=== PATIENT | female | born 1950 | race Caucasian/White ===

== ENCOUNTER 2017-12-01 18:17 | Inpatient (IN) ==
[2017-12-01] MEDS ORDERED: Diphtheria/Tetanus/Pertussis Vaccine Inj 0.5 ML Syringe IM ONE (18:30)
[2017-12-01 18:42] LABS: Baso # (Auto) 0.1 th/mm3 (0.0-0.2); Baso % (Auto) 0.5 % (0.0-2.0); Eos # (Auto) 0.3 th/mm3 (0.0-0.4); Eos % (Auto) 2.5 % (0.0-4.0); Hematocrit 35.1 % (35.0-46.0); Hemoglobin 11.7 gm/dL (11.6-15.3); Lymph # (Auto) 2.3 th/mm3 (1.0-4.8); Mean Corpuscular HGB Conc 33.5 % (32.0-36.0); Mean Corpuscular Hemoglobin 26.9 pg (27.0-34.0); Mean Corpuscular Volume 80.4 fL (80.0-100.0); Mean Platelet Volume 7.2 fL (7.0-11.0); Mono # (Auto) 0.7 th/mm3 (0.0-0.9); Mono % (Auto) 6.5 % (0.0-8.0); Neut # (Auto) 7.3 th/mm3 (1.8-7.7); Neut % (Auto) 68.5 % (16.0-70.0); Platelet Count 245 th/mm3 (150-450); Red Blood Count 4.36 mil/mm3 (4.00-5.30); Red Cell Distribution Width 14.7 % (11.6-17.2); White Blood Count 10.6 th/mm3 (4.0-11.0)
--- NOTE | 2017-12-01 18:44 | ED ---
HPI General Stated Complaint: Trauma Alert Source: patient Mode of arrival: EMS Limitations: no limitations History of Present Illness HPI narrative: [age]-old female who presents to the emergency department via EMS as a level 2 trauma alert. The patient was walking into her house, through a door, when she bumped her leg on a step and subsequently fell backwards. The patient was noted to have a large laceration to the anterior aspect of the left tibia/fibula, thought to be an open fracture in the field. The patient had the wound dressed in the field, was neurovascularly intact, and brought to [facility] in a cervical collar. The patient states after she fell, she landed on her buttocks, denies any direct head injury. She denies any headache, acute neck pain, back pain, chest pain, shortness of breath , nausea, vomiting, or abdominal pain. The patient did receive morphine 6 mg intravenously in the field by EMS prior to arrival. Surgical history: History of back surgery, right elbow surgery Medical history: Hypertension, asthma, left foot drop with neuropathy, sciatica Social history: Denies tobacco use. No alcohol or illicit drug use. Family history: Noncontributory Related Data Allergies Allergy/AdvReac Type Severity Reaction Status Date / Time No Known Allergies Allergy Unverified 12/01/17 21:39 Review of Systems ROS: all other systems reviewed are negative [facility] Social History Social History Substance History: No History of Abuse Second Hand Smoke Exposure: No Smoking Status: Never smoker How Often Do You Have a Drink Containing Alcohol: Never Exam Narrative Exam Narrative: GENERAL: Awake, alert, very pleasant [age]old female who appears her stated age and is in no acute respiratory distress. The patient is in a cervical collar and lying supine. SKIN: Focused skin assessment warm/dry. HEAD: Atraumatic. Normocephalic. EYES: Pupils equal and round. 4 mm bilateral and reactive. EOMs are intact. ENT: No nasal bleeding or discharge. Mucous membranes pink and moist. NECK: Trachea midline. No JVD. Cervical collar in place. CARDIOVASCULAR: Regular rate and rhythm. No murmur appreciated. RESPIRATORY: No accessory muscle use. Clear to auscultation. Breath sounds equal bilaterally. GASTROINTESTINAL: Abdomen soft, non-tender, nondistended. No rebound tenderness MUSCULOSKELETAL: Deformity to the mid to distal third of the left tibia/fibula with a laceration measuring 15 cm with visible subcutaneous tissue involvement and bone involvement. Positive left dorsalis pedal pulse. The patient cannot wiggle the toes left foot, but can plantarflex and dorsiflex. Positive dorsalis pedal pulses bilateral. Full use of the upper extremities. NEUROLOGICAL: Awake and alert. No obvious cranial nerve deficits. Motor grossly within normal limits. Normal speech. Nonfocal. Oriented 4. Sensation is intact to soft touch of the medial, lateral, dorsal aspect of the left foot. PSYCHIATRIC: Appropriate mood and affect; insight and judgment normal. Course Initial Documented Vital Signs Pulse Oximetry 100 12/01/17 18:37 Last Documented Vital Signs Temperature 97.6 F 12/02/17 08:25 Pulse Rate 106 H 12/02/17 08:25 Respiratory Rate 18 12/02/17 08:25 Blood Pressure 155/77 H 12/02/17 08:25 Pulse Oximetry 94 L 12/02/17 08:25 Medical Decision Making MDM Narrative Medical decision making narrative: ATLS protocol was followed. Upon arrival the patient's airway, breathing, circulation were intact. 2 large-bore IVs were established, labs are drawn and sent, and the patient was placed on cardiac telemetry monitoring and continuous pulse oximetry monitoring. Chest x- ray, pelvis x-ray, and x-ray of the left tibia/fibula were obtained. The patient had Betadine dressing applied over the laceration to the left leg and the patient was placed in a long-leg splint. X-ray of the left tibia/fibula reveals a fracture, with large laceration, consistent with open fracture. The patient received Ancef 2 g intravenously and 80 mg of gentamicin intravenously. The patient also had her tetanus shot updated and received morphine 4 mg intravenously and Zofran 4 mg intravenously. The patient was kept n.p.o. The patient was seen by the orthopedic surgeon, Dr. Davenport, at bedside. I discussed the patient with Dr. Thomas, the on-call trauma surgeon, who agrees with admission. Medical Screen Exam Complete: Yes Emergency Medical Condition: Yes Differential Diagnosis Differential Diagnosis: Differential diagnosis includes open fracture, closed fracture, tissue avulsion, laceration, contusion, hematoma, syncope. Lab Data Lab results reviewed: Yes I reviewed the patient's lab results. Result diagrams: 12/02/17 04:12/02/17 04:09 Lab Results 12/01/17 12/01/17 12/01/17 Range/Units 18:19 18:19 18:19 WBC 10.6 (4.0-11.0) th/mm3 RBC 4.36 (4.00-5.30) mil/mm3 Hgb 11.7 (11.6-15.3) gm/dL POC Hgb (Calc) 11.6 (11.6-15.3) g/dL Hct 35.1 (35.0-46.0) % POC Hct 34.0 L (35-46.0) % MCV 80.4 (80.0-100.0) fL MCH 26.9 L (27.0-34.0) pg MCHC 33.5 (32.0-36.0) % RDW 14.7 (11.6-17.2) % Plt Count 245 (150-450) th/mm3 MPV 7.2 (7.0-11.0) fL Neut % (Auto) 68.5 (16.0-70.0) % Lymph % (Auto) 22.0 (9.0-44.0) % [place] % (Auto) 6.5 (0.0-8.0) % Eos % (Auto) 2.5 (0.0-4.0) % Baso % (Auto) 0.5 (0.0-2.0) % Neut # (Auto) 7.3 (1.8-7.7) th/mm3 Lymph # (Auto) 2.3 (1.0-4.8) th/mm3 [place] # (Auto) 0.7 (0.0-0.9) th/mm3 Eos # (Auto) 0.3 (0.0-0.4) th/mm3 Baso # (Auto) 0.1 (0.0-0.2) th/mm3 WBC Differential . Differential Comment Auto diff final PT 10.9 (9.8-11.6) sec INR 1.1 Ratio APTT 26.5 (24.3-30.1) sec POC Sodium 142 (137-144) mmol/L Sodium (136-145) meq/L POC Potassium 3.3 L (3.6-5.0) mmol/L Potassium (3.5-5.1) meq/L POC Chloride 99 L (102-111) mmol/L Chloride (98-107) meq/L Carbon Dioxide (21.0-32.0) meq/L Anion Gap (5-15) meq/L POC BUN 13 (5-21) mg/dL BUN (7-18) mg/dL Creatinine (0.50-1.00) mg/dL POC Creatinine 0.8 (0.6-1.3) mg/dL Estimated GFR (>89) mL/min POC Glucose 129 H (68-110) mg/dL Random Glucose (74-106) mg/dL Calcium (8.5-10.1) mg/dL Total Bilirubin (0.2-1.0) mg/dL AST (15-37) U/L ALT (10-53) U/L Alkaline Phosphatase (45-117) U/L Total Protein (6.4-8.2) g/dL Albumin (3.4-5.0) g/dL Blood Type Antibody Screen 12/01/17 12/01/17 12/02/17 Range/Units 18:19 21:58 04:09 WBC 17.2 H D (4.0-11.0) th/mm3 RBC 3.72 L (4.00-5.30) mil/mm3 Hgb 10.6 L 9.8 L (11.6-15.3) gm/dL POC Hgb (Calc) (11.6-15.3) g/dL Hct 31.2 L 30.0 L (35.0-46.0) % POC Hct (35-46.0) % MCV 80.7 (80.0-100.0) fL MCH 26.3 L (27.0-34.0) pg MCHC 32.6 (32.0-36.0) % RDW 14.4 (11.6-17.2) % Plt Count 272 (150-450) th/mm3 MPV 7.2 (7.0-11.0) fL Neut % (Auto) 91.5 H (16.0-70.0) % Lymph % (Auto) 6.3 L (9.0-44.0) % [place] % (Auto) 1.9 (0.0-8.0) % Eos % (Auto) 0.0 (0.0-4.0) % Baso % (Auto) 0.3 (0.0-2.0) % Neut # (Auto) 15.8 H (1.8-7.7) th/mm3 Lymph # (Auto) 1.1 (1.0-4.8) th/mm3 [place] # (Auto) 0.3 (0.0-0.9) th/mm3 Eos # (Auto) 0.0 (0.0-0.4) th/mm3 Baso # (Auto) 0.0 (0.0-0.2) th/mm3 WBC Differential . Differential Comment Auto diff final PT (9.8-11.6) sec INR Ratio APTT (24.3-30.1) sec POC Sodium (137-144) mmol/L Sodium (136-145) meq/L POC Potassium (3.6-5.0) mmol/L Potassium (3.5-5.1) meq/L POC Chloride (102-111) mmol/L Chloride (98-107) meq/L Carbon Dioxide (21.0-32.0) meq/L Anion Gap (5-15) meq/L POC BUN (5-21) mg/dL BUN (7-18) mg/dL Creatinine (0.50-1.00) mg/dL POC Creatinine (0.6-1.3) mg/dL Estimated GFR (>89) mL/min POC Glucose (68-110) mg/dL Random Glucose (74-106) mg/dL Calcium (8.5-10.1) mg/dL Total Bilirubin (0.2-1.0) mg/dL AST (15-37) U/L ALT (10-53) U/L Alkaline Phosphatase (45-117) U/L Total Protein (6.4-8.2) g/dL Albumin (3.4-5.0) g/dL Blood Type O Positive Antibody Screen Negative 12/02/17 Range/Units 04:09 WBC (4.0-11.0) th/mm3 RBC (4.00-5.30) mil/mm3 Hgb (11.6-15.3) gm/dL POC Hgb (Calc) (11.6-15.3) g/dL Hct (35.0-46.0) % POC Hct (35-46.0) % MCV (80.0-100.0) fL MCH (27.0-34.0) pg MCHC (32.0-36.0) % RDW (11.6-17.2) % Plt Count (150-450) th/mm3 MPV (7.0-11.0) fL Neut % (Auto) (16.0-70.0) % Lymph % (Auto) (9.0-44.0) % [place] % (Auto) (0.0-8.0) % Eos % (Auto) (0.0-4.0) % Baso % (Auto) (0.0-2.0) % Neut # (Auto) (1.8-7.7) th/mm3 Lymph # (Auto) (1.0-4.8) th/mm3 [place] # (Auto) (0.0-0.9) th/mm3 Eos # (Auto) (0.0-0.4) th/mm3 Baso # (Auto) (0.0-0.2) th/mm3 WBC Differential Differential Comment PT (9.8-11.6) sec INR Ratio APTT (24.3-30.1) sec POC Sodium (137-144) mmol/L Sodium 136 (136-145) meq/L POC Potassium (3.6-5.0) mmol/L Potassium 3.9 (3.5-5.1) meq/L POC Chloride (102-111) mmol/L Chloride 100 (98-107) meq/L Carbon Dioxide 27.1 (21.0-32.0) meq/L Anion Gap 9 (5-15) meq/L POC BUN (5-21) mg/dL BUN 13 (7-18) mg/dL Creatinine 0.95 (0.50-1.00) mg/dL POC Creatinine (0.6-1.3) mg/dL Estimated GFR 51 L (>89) mL/min POC Glucose (68-110) mg/dL Random Glucose 191 H (74-106) mg/dL Calcium 8.2 L (8.5-10.1) mg/dL Total Bilirubin 0.3 (0.2-1.0) mg/dL AST 15 (15-37) U/L ALT 21 (10-53) U/L Alkaline Phosphatase 69 (45-117) U/L Total Protein 6.8 (6.4-8.2) g/dL Albumin 3.5 (3.4-5.0) g/dL Blood Type Antibody Screen Imaging Data Attestation: I personally reviewed and interpreted this imaging study as follows : My impression: X-ray of the left tibia/fibula reveals fracture Radiologist's impression: Tibia/Fibula X-Ray 12/01/17 00:00 CONCLUSION: Status post open rigid internal fixation. Chest X-Ray 12/01/17 18:19 CONCLUSION: No acute cardiopulmonary disease. Pelvis X-Ray 12/01/17 18:19 CONCLUSION: Negative trauma study. Tibia/Fibula X-Ray 12/01/17 18:26 CONCLUSION: Comminuted fractures of the tibia and fibula. Discharge Plan Discharge Disposition Patient Disposition: 30 Still Patient Discharge Condition Condition: Stable Discharge Details Diagnosis: Open fracture of tibia and fibula Physicians Team ED Provider: John Phillips Attending Provider: Omi Joyce Other Providers: Errol Brasher ; Kvng Woodall ; Systems[facility] ; Omi Joyce ; Madeleine Casas ; J Luis Fatima ; Irma Bonilla ; Faviola Bragg ; Ellie Bonilla Status ED Status: Admitted Patient
[2017-12-01] MEDS ORDERED: ceFAZolin 2 GM Premix Inj 0 GM/0 ML PIGGYBACK IV.SIG ONE (18:46)
[2017-12-01] MEDS ORDERED: Bupivacaine/Epinephrine Inj 0.25% 50 ML Vial ONE (18:47)
[2017-12-01 18:53] LABS: Activated Partial Thrombo Time 26.5 sec (24.3-30.1); INR 1.1 Ratio; Prothrombin Time 10.9 sec (9.8-11.6)
--- NOTE | 2017-12-01 19:03 | XR ---
EXAM DATE: 12/01/2017 7:00 PM EDT AGE/SEX: 89 years / Female INDICATIONS: Trauma Alert CLINICAL DATA: This is the patient's initial encounter. Patient reports that signs and symptoms have been present for 1 day and indicates a pain score of 7/10. MEDICAL/SURGICAL HISTORY: None. None. COMPARISON: No prior exams available for comparison. FINDINGS: A single AP supine view of the chest was obtained and demonstrates no confluent infiltrates or effusi ons. The heart size is at the upper limits of normal. The bony thorax is intact in appearance. Multip le overlying electrocardiogram leads. CONCLUSION: No acute cardiopulmonary disease. Electronically signed by: Aba Aguilar MD 12/01/2017 7:02 PM EDT
--- NOTE | 2017-12-01 19:03 | XR ---
EXAM DATE: 12/01/2017 6:59 PM EDT AGE/SEX: 89 years / Female INDICATIONS: Trauma Alert CLINICAL DATA: This is the patient's initial encounter. Patient reports that signs and symptoms have been present for 1 day and indicates a pain score of 8/10. MEDICAL/SURGICAL HISTORY: None. None. COMPARISON: No prior exams available for comparison. FINDINGS: 2 AP views of the pelvis were obtained. Both views are mildly underpenetrated. There is no acute frac ture or malalignment. The hips are intact in appearance with mild degenerative change. The pubic rami are intact as well. No soft tissue abnormality is identified. CONCLUSION: Negative trauma study. Electronically signed by: Aba Aguilar MD 12/01/2017 7:02 PM EDT
--- NOTE | 2017-12-01 19:05 | XR ---
EXAM DATE: 12/01/2017 6:57 PM EDT AGE/SEX: 89 years / Female INDICATIONS: Trauma Alert CLINICAL DATA: This is the patient's initial encounter. Patient reports that signs and symptoms have been present for 1 day and indicates a pain score of 9/10. MEDICAL/SURGICAL HISTORY: None. None. COMPARISON: No prior exams available for comparison. FINDINGS: AP and lateral views of the mid and lower tibia and fibula were obtained. This demonstrates a comminu claudio oblique fracture involving the mid tibia beginning approximately 18 cm above the level of the ank le mortise. The inferior fracture fragment is displaced laterally approximately 7 mm with mild distra ction and no significant angulation. There is a comminuted fracture of the distal fibula as well. The re is soft tissue swelling. The proximal tibia and fibula are not evaluated. CONCLUSION: Comminuted fractures of the tibia and fibula. Electronically signed by: Aba Aguilar MD 12/01/2017 7:04 PM EDT
--- NOTE | 2017-12-01 19:31 | P.CONOP ---
HPI Orthopedics Consult Note - HPI Chief complaint: open left tibia/fibula fracture, trauma alert Narrative: 17-69-[age]-old female who has a past medical history of hypertension, asthma, sciatica and left drop foot who presents to the emergency department via EMS as a level 2 trauma alert. The patient was walking into her house from a pull area where she was watching her grandchildren, through a door, and she states that because of the pre-existing dropfoot on the left side she feels that the foot got caught which caused her to fall backwards. She noticed immediate laceration of the leg. She was unable to stand on the leg. Any attempted ambulation or standing increased pain significantly. She denies having problems with this portion of her leg in the past. She says she has a dropfoot on the left side because of previous spine surgery and long-term sciatica on the left foot. She does not describe specific numbness or tingling about the left lower extremity that is new but she does have some pre-existing numbness. She does not describe pain in the upper extremities of the right lower extremity. Family history: Her grandparents have a history of diabetes and coronary artery disease Surgical history: Lumbar spine laminectomy and elbow surgery. Social history: The patient denies smoking or other illicit drugs Review of Systems A 12 point review of systems was reviewed and is negative unless as specified in the history of present illness. Medications and Allergies Active Medications: She says she can only remember hydrochlorothiazide. She does not member the names of other medicine she takes but she said she is not on a blood thinner. Allergies Allergy/AdvReac Type Severity Reaction Status Date / Time No Allergy Information Allergy Unverified 12/01/17 18:18 Available Exam Vital signs: Vital Signs 12/01/17 18:37 Pulse Oximetry 100 Narrative: GENERAL: The patient is awake, alert and oriented x3. The patient is in distress due to the trauma nature of the injury. She was interviewed in the trauma bay. PSYCHIATRIC: Normal affect, insight, and judgment. HEENT: Head is atraumatic. Oropharynx is moist. Extraocular muscles are intact. NECK: Immobilized LUNGS: No audible wheezing. He has normal inspiratory effort with no signs of dyspnea HEART: Regular rate and rhythm. ABDOMEN: Soft, nontender, and nondistended. BACK: No CVA tenderness. EXTREMITIES/SKIN/NEURO/VASCULAR: The left lower extremity shows a large laceration in the sole aspect of the tibia which extends medially. There is obvious muscle coming through this and the wound is quite . I do not appreciate significant gross contamination. The patient did come in wearing shorts. She does have a dropfoot (weakness) to the left foot but she has sensation on the dorsal and plantar aspect of the foot. She has a 2+ dorsalis pedis pulse and does have sensation to the foot to light touch. There is instability about the mid tibia indicating fractures. The bilateral upper extremities and right lower extremity have good range of motion actively of the major joints with no significant tenderness to palpation of bony prominences. Results - Labs Result Diagrams: 12/01/17 18:19 Labs: Laboratory Results - last 24 hr 12/01/17 12/01/17 12/01/17 18:19 18:19 18:19 WBC 10.6 RBC 4.36 Hgb 11.7 POC Hgb (Calc) 11.6 Hct 35.1 POC Hct 34.0 L MCV 80.4 MCH 26.9 L MCHC 33.5 RDW 14.7 Plt Count 245 MPV 7.2 Neut % (Auto) 68.5 Lymph % (Auto) 22.0 [place] % (Auto) 6.5 Eos % (Auto) 2.5 Baso % (Auto) 0.5 Neut # (Auto) 7.3 Lymph # (Auto) 2.3 [place] # (Auto) 0.7 Eos # (Auto) 0.3 Baso # (Auto) 0.1 WBC Differential . Differential Comment Auto diff final PT 10.9 INR 1.1 APTT 26.5 POC Sodium 142 POC Potassium 3.3 L POC Chloride 99 L POC BUN 13 POC Creatinine 0.8 POC Glucose 129 H Blood Type Antibody Screen 12/01/17 18:19 WBC RBC Hgb POC Hgb (Calc) Hct POC Hct MCV MCH MCHC RDW Plt Count MPV Neut % (Auto) Lymph % (Auto) [place] % (Auto) Eos % (Auto) Baso % (Auto) Neut # (Auto) Lymph # (Auto) [place] # (Auto) Eos # (Auto) Baso # (Auto) WBC Differential Differential Comment PT INR APTT POC Sodium POC Potassium POC Chloride POC BUN POC Creatinine POC Glucose Blood Type O Positive Antibody Screen Negative - Diagnostic results Imaging: Impressions Chest X-Ray 12/01/17 18:19 CONCLUSION: No acute cardiopulmonary disease. Pelvis X-Ray 12/01/17 18:19 CONCLUSION: Negative trauma study. Tibia/Fibula X-Ray 12/01/17 18:26 CONCLUSION: Comminuted fractures of the tibia and fibula. I have reviewed the images for this radiology study. I agree with the interpretation given by the radiologist. Assessment and Plan - Assessment and Plan Level 2 trauma alert with left open grade 3 tibia fibula fracture. The emergency room attending has already given the patient Ancef and gentamicin in the trauma bay. The patient will receive vancomycin preoperatively before surgery. I recommend emergent surgical management for this condition. Without emergent surgical management there is serious and likely significant limb threatening complications that can occur such as infection superficial and/or deep, including dysfunction of the lower extremity. The patient requires emergent irrigation and debridement of the leg along with external fixation versus intramedullary shameka fixation. She understands that surgery could be staged depending on intraoperative findings. She understands the serious nature of this injury. The patient would like to move forward with emergent surgical management for this condition. This is surgery should be considered non-elective, given that this patient presented emergently to the hospital, and the decision to proceed with surgery was derived from this presentation. Significantly delaying surgery (other than for medical clearance) has the potential to adversly effect the outcome for this patient's extremity. Management of pain associated with surgery will likely require the use of parental controlled substances. The risks and benefits of surgical management have been discussed in detail. The risks of surgery include, but are not limited to, injury to nerves, blood vessels, bleeding, infection, non-healing; loss of range on motion, dysfunction or weakness of the associated joints; blood clots, pneumonia, stroke, heart attack, and . - Attending Attestation Attending Attestation: A mid level provider in my office, nurse practitioner or PA, may see this patient on a follow up basis and continue to implement the plan including: starting or adjusting medications, injections of muscle, tendons, bursa or joints, cast application, orthotic or brace application, physical therapy, further radiographic studies including X-ray, MRI, CT, ultrasound or bone scan , vascular studies, neurological studies, or other specialist consultations, and proceeding with surgical management as appropriate.
[2017-12-01] MEDS ORDERED: Succinylcholine Inj 100 MG/5 ML Syringe IV.PUSH ONE (20:04)
[2017-12-01] MEDS ORDERED: Lidocaine PF 1% Inj 5 ML Syringe INFILTRATN ONE (20:04)
[2017-12-01] MEDS ORDERED: Metoprolol Inj 5 MG/5 ML Vial IV.PUSH ONE (20:04)
[2017-12-01] MEDS ORDERED: Glycopyrrolate Inj 1 MG/5 ML Syringe IV.PUSH ONE (20:04)
[2017-12-01] MEDS ORDERED: Phenylephrine/NS 1000 MCG/10ML Syringe IV.PUSH ONE (20:04)
[2017-12-01] MEDS ORDERED: Morphine Inj 4 MG/ML Vial IV.PUSH PRN (21:00)
[2017-12-01] MEDS ORDERED: Docusate Sodium 100 MG Capsule PO SCH (21:00)
[2017-12-01] MEDS ORDERED: Aluminum/Magnesium/Simethacone Susp 30 ML UDC PO PRN (21:06)
[2017-12-01] MEDS ORDERED: Post-op Orders (for Pharmacy) OTHER STA (21:06)
[2017-12-01] MEDS ORDERED: Zolpidem Tartrate 5 MG Tablet PO PRN (21:06)
[2017-12-01] MEDS ORDERED: Bisacodyl 10 MG Supp RECTAL PRN (21:06)
[2017-12-01] MEDS ORDERED: Enoxaparin Inj 40 MG/0.4 ML Syringe SQ SCH (21:15)
--- NOTE | 2017-12-01 21:15 | P.OP ---
- Preoperative Diagnosis (1) Open fracture of tibia and fibula Comment: Left grade 3 open comminuted tibia/fibula fracture Preoperative Diagnosis: Same Date of procedure: 12/01/17 Procedure: Left leg irrigation and debridement of skin through bone for open fracture. Left leg treatment of tibia fracture with intramedullary nail Implants: Synthes tibial nail, 11 x 315. Anesthesia: GETA Surgeon: Ron Davenport MD Correspondence School Teacher: ISELA Pearson The surgical procedure was assisted by my Advanced Registered Nurse Practitioner. My RAMP SUPERVISOR presence was necessary throughout this case for the manipulation and positioning of the surgical extremity. My RAMP SUPERVISOR was assisting me throughout the duration of this procedure. The skill set of an Advance Registered Nurse Practitioner was medically necessary to complete this procedure. During the surgical case, the medical surgical tech was working at the back table and the Advance Registered Nurse Practitioner was directly assisting me. Estimated blood loss (mL): 200 Tourniquet time (min): 0 Operation and Findings: See the consult for the justification for the procedure. The patient was brought back to the operative theater. She received intravenous vancomycin. The left lower extremity was prepped and draped in usual fashion for an open fracture. This was done after general endotracheal intubation was performed. The patient had a 14 cm wound across the anterior to medial aspect of the distal third tibial shaft. I did not see gross contamination. The laceration communicated with the fracture site and entered through the deep fascia although the muscles of the posterior compartment appeared to be intact without significant devitalization. I did not see any contamination within the exposed bone shafts. There was quite a bit of hematoma which was evacuated. The skin edges looked clean but were debrided along with the deep fascia and the edges of the bone. This was done with a curette. We then irrigated with 3 L of saline. Instruments, gloves, and drapes were exchanged. We started on the tibial nail at this point. We made incision proximal to the patella. We carefully dissected down to the quadriceps tendon. An in-line longitudinal split to the quadriceps tendon was completed. The capsule of the knee was entered. We placed the smooth trocar within the knee joint down to the proximal tibia, protecting the patella and trochlea during the case. We then reduced the tibia fracture manually and under fluoroscopic imaging. A ball-tipped guidewire was placed into the tibial shaft, passing the fracture site. This was placed down to the distal physeal line of the tibia. We then sequentially reamed the tibia to 1 mm larger than the implanted tibial nail. We obtained good cortical chatter. We measured the appropriate length for the tibial nail. We then passed the tibial nail into the medullary canal of the tibia. The nail was secured proximally with 2 screw, using the associated jig as a guide. We used the perfect cowlitz technique distally to visualize the distal tibial screw holes. We placed 3 screws distally. We thoroughly irrigated the incisions including a lavage of the arthrotomy site proximally. The quadriceps split was closed with a #1 Vicryl. The remaining incisions were closed with #2-0 Vicryl, followed by zeke. The traumatic laceration was closed with 2-0 Vicryl and 3-0 nylon. A well-padded splint was required to provide further stabilization to the leg. The postoperative plan is for nonweightbearing. Chemical DVT prophylaxis will be performed with Lovenox followed by aspirin.
--- NOTE | 2017-12-01 21:28 | XR ---
EXAM DATE: 12/01/2017 9:23 PM EDT AGE/SEX: 89 years / Female INDICATIONS: Status post open rigid internal fixation of a left tibial fracture. CLINICAL DATA: This is the patient's initial encounter. Patient reports that signs and symptoms have been present for 1 day and indicates a pain score of Nonresponsive. MEDICAL/SURGICAL HISTORY: None. None. COMPARISON: No prior exams available for comparison. FINDINGS: Multiple coned-down views of the left leg were obtained and demonstrate placement of an intramedullar y shameka transfixing the tibial fracture. The fracture fragments are now in near-anatomic alignment. The distal fibular fracture is again noted. The fragments are near-anatomic alignment as well. CONCLUSION: Status post open rigid internal fixation. Electronically signed by: Aba Aguilar MD 12/01/2017 9:27 PM EDT
--- NOTE | 2017-12-01 21:46 | MH ---
cc: Omi Joyce MD DATE OF ADMISSION: 12/01/2017 HISTORY OF PRESENT ILLNESS: This is a patient who was brought in as a level 2 trauma after tripping and falling. She was brought in secondary to age and long bone deformity. She was worked up by the emergency room physician and found to have an open fracture of her left tib-fib. Trauma service was requested for admission. On my evaluation, the patient was lying on a stretcher in no acute distress. She complained of left leg pain. She denies any head pain. Denies loss of consciousness. No neck pain. No chest pain. No shortness of breath. No abdominal pain. The patient states she landed on her buttocks after falling. PAST MEDICAL HISTORY: Significant for hypertension, sciatica, drop foot on the left. MEDICATIONS: She is on medication. She cannot recall the names of them. ALLERGIES: SHE HAS NO DRUG ALLERGIES. SOCIAL HISTORY: She does not smoke. FAMILY HISTORY: Noncontributory. PHYSICAL EXAMINATION: HEENT: Pupils are equal and reactive. NECK: Soft, nontender. No JVD. Trachea midline. LUNGS: Respirations are clear. CARDIOVASCULAR: Regular. GASTROINTESTINAL: Soft, obese, nontender. MUSCULOSKELETAL: Left leg in splint. NEUROLOGIC: Grossly intact. BACK: Nontender. RADIOLOGIC IMAGES: Pelvic x-ray: No fracture. Left tib-fib: Comminuted fracture of the tibia and fibula. Chest x-ray: No acute disease. ASSESSMENT: This is a patient status post a fall with an open fracture of the left tibia and fibula. The patient has been evaluated by orthopedics and will be going to the operating room for this. Will provide pain management postoperatively, monitor her neurologic and hemodynamics. Omi Joyce MD JLBuddy/john , 09:15 PM , 09:23 PM
[2017-12-01] MEDS ORDERED: fentaNYL Citrate Inj 100 MCG/2 ML Ampul ONE (22:00)
[2017-12-01] MEDS: Pantoprazole Inj 40 MG Vial IV.PUSH SCH (22:03)
[2017-12-01 22:12] LABS: Hematocrit 31.2 % (35.0-46.0); Hemoglobin 10.6 gm/dL (11.6-15.3)
[2017-12-01] MEDS ORDERED: *morphine SULFATE 4 MG/ML PERIprocedure ONLY ONE ×2 (22:14→22:34)
[2017-12-02 04:28] LABS: Baso % (Auto) 0.3 % (0.0-2.0); Hemoglobin 9.8 gm/dL (11.6-15.3); Lymph # (Auto) 1.1 th/mm3 (1.0-4.8); Lymph % (Auto) 6.3 % (9.0-44.0); Mean Corpuscular HGB Conc 32.6 % (32.0-36.0); Mean Corpuscular Hemoglobin 26.3 pg (27.0-34.0); Mean Corpuscular Volume 80.7 fL (80.0-100.0); Mean Platelet Volume 7.2 fL (7.0-11.0); Mono # (Auto) 0.3 th/mm3 (0.0-0.9); Mono % (Auto) 1.9 % (0.0-8.0); Neut # (Auto) 15.8 th/mm3 (1.8-7.7); Neut % (Auto) 91.5 % (16.0-70.0); Platelet Count 272 th/mm3 (150-450); Red Blood Count 3.72 mil/mm3 (4.00-5.30); Red Cell Distribution Width 14.4 % (11.6-17.2); White Blood Count 17.2 th/mm3 (4.0-11.0)
[2017-12-02 04:55] LABS: Albumin 3.5 g/dL (3.4-5.0); Anion Gap 9 meq/L (5-15); Aspartate Aminotransferase 15 U/L (15-37); Blood Urea Nitrogen 13 mg/dL (7-18); Calcium 8.2 mg/dL (8.5-10.1); Carbon Dioxide 27.1 meq/L (21.0-32.0); Chloride 100 meq/L (98-107); Glomerular Filtration Rate 51 mL/min (>89); Glucose,Random 191 mg/dL (74-106); Potassium 3.9 meq/L (3.5-5.1); Sodium 136 meq/L (136-145)
[2017-12-02 04:56] LABS: Alanine Aminotransferase 21 U/L (10-53)
[2017-12-02 04:58] LABS: Alkaline Phosphatase 69 U/L (45-117); Total Protein 6.8 g/dL (6.4-8.2)
[2017-12-02] MEDS: Morphine Inj 4 MG/ML Vial IV.PUSH PRN ×3 (05:06→16:10)
--- NOTE | 2017-12-02 09:06 | P.PN ---
Subjective Interval history: Trauma PTD: 1 Patient sitting up in bed. No distress noted. Having breakfast. at bedside. Patient states she is feeling much better after the administration of pain medication. Patient is very grateful for the care she has received. Physical Exam Vital signs: Vital Signs 12/01/17 18:37 12/01/17 21:54 12/01/17 22:00 Temperature 98.4 F Pulse Rate 100 H 95 H Respiratory Rate 16 11 L Blood Pressure 136/63 139/68 Pulse Oximetry 100 97 95 12/01/17 22:15 12/01/17 22:30 12/01/17 22:45 Temperature Pulse Rate 102 H 107 H Respiratory Rate 20 20 Blood Pressure 142/68 H 125/63 Pulse Oximetry 98 97 97 12/01/17 22:46 12/01/17 23:00 12/01/17 23:05 Temperature 97.8 F Pulse Rate 97 H 104 H Respiratory Rate 15 Blood Pressure 121/58 L 120/60 Pulse Oximetry 96 96 96 12/02/17 00:00 12/02/17 04:00 12/02/17 08:25 Temperature 97.9 F 97.8 F 97.6 F Pulse Rate 108 H 104 H 106 H Respiratory Rate 20 18 18 Blood Pressure 115/62 132/60 155/77 H Pulse Oximetry 96 98 94 L Intake & Output 12/01/17 12/02/17 12/02/17 18:59 06:59 18:59 Intake Total 2620 / 2620 Output Total 1850 / 1850 Balance 770 / 770 Weight 119.8 kg Intake: IV 200 / 200 Ancef Inj 1,000 MG In NS Inj 200 / 200 100 ML @ 200 mls/hr IV.SIG Q6H [facility] Rx#:[id number] Oral 1020 / 1020 Anesthesia Amount 1400 / 1400 Output: Urine 1250 / 1250 Estimated Blood Loss 200 / 200 Urine Amount (Catheter) 400 / 400 Indwelling Urethral Catheter 400 / 400 Other: Weight On Admission 114 kg Narrative: GENERAL: This is a 1-sno-utsn-old female sitting up in bed. No distress noted. SKIN: Warm and dry. HEAD: Atraumatic. Normocephalic. EYES: PERRLA ENT: No nasal bleeding or discharge. Mucous membranes pink and moist. NECK: Trachea midline. No JVD. CARDIOVASCULAR: Regular rate and rhythm. RESPIRATORY: No accessory muscle use. Lungs are clear to auscultation. Breath sounds equal bilaterally. No distress or dyspnea. GASTROINTESTINAL: BS + x 4 quads. Abdomen soft, non-tender, nondistended. MUSCULOSKELETAL: Extremities without cyanosis, or edema. Left lower extremity with splint in place and wrapped in Len bandage -elevated on pillow. Ice packs in place. + peripheral pulses x 4 extremities. Warm with good capillary refill and sensation. MAEW. NEUROLOGICAL: Awake and alert. Normal speech and pattern. - Urinary Catheter Management Indwelling Urethral Catheter Cath placed during this visit: yes Reason for continuing: Other continuation reason Insertion date: 12/01/17 Results - Labs CBC & Chem 7: 12/02/17 04:09 12/02/17 04:09 Laboratory Results - last 24 hr 12/01/17 12/01/17 12/01/17 18:19 18:19 18:19 WBC 10.6 RBC 4.36 Hgb 11.7 POC Hgb (Calc) 11.6 Hct 35.1 POC Hct 34.0 L MCV 80.4 MCH 26.9 L MCHC 33.5 RDW 14.7 Plt Count 245 MPV 7.2 Neut % (Auto) 68.5 Lymph % (Auto) 22.0 [place] % (Auto) 6.5 Eos % (Auto) 2.5 Baso % (Auto) 0.5 Neut # (Auto) 7.3 Lymph # (Auto) 2.3 [place] # (Auto) 0.7 Eos # (Auto) 0.3 Baso # (Auto) 0.1 WBC Differential . Differential Comment Auto diff final PT 10.9 INR 1.1 APTT 26.5 POC Sodium 142 Sodium POC Potassium 3.3 L Potassium POC Chloride 99 L Chloride Carbon Dioxide Anion Gap POC BUN 13 BUN Creatinine POC Creatinine 0.8 Estimated GFR POC Glucose 129 H Random Glucose Calcium Total Bilirubin AST ALT Alkaline Phosphatase Total Protein Albumin Blood Type Antibody Screen 12/01/17 12/01/17 12/02/17 18:19 21:58 04:09 WBC 17.2 H D RBC 3.72 L Hgb 10.6 L 9.8 L POC Hgb (Calc) Hct 31.2 L 30.0 L POC Hct MCV 80.7 MCH 26.3 L MCHC 32.6 RDW 14.4 Plt Count 272 MPV 7.2 Neut % (Auto) 91.5 H Lymph % (Auto) 6.3 L [place] % (Auto) 1.9 Eos % (Auto) 0.0 Baso % (Auto) 0.3 Neut # (Auto) 15.8 H Lymph # (Auto) 1.1 [place] # (Auto) 0.3 Eos # (Auto) 0.0 Baso # (Auto) 0.0 WBC Differential . Differential Comment Auto diff final PT INR APTT POC Sodium Sodium POC Potassium Potassium POC Chloride Chloride Carbon Dioxide Anion Gap POC BUN BUN Creatinine POC Creatinine Estimated GFR POC Glucose Random Glucose Calcium Total Bilirubin AST ALT Alkaline Phosphatase Total Protein Albumin Blood Type O Positive Antibody Screen Negative 12/02/17 04:09 WBC RBC Hgb POC Hgb (Calc) Hct POC Hct MCV MCH MCHC RDW Plt Count MPV Neut % (Auto) Lymph % (Auto) [place] % (Auto) Eos % (Auto) Baso % (Auto) Neut # (Auto) Lymph # (Auto) [place] # (Auto) Eos # (Auto) Baso # (Auto) WBC Differential Differential Comment PT INR APTT POC Sodium Sodium 136 POC Potassium Potassium 3.9 POC Chloride Chloride 100 Carbon Dioxide 27.1 Anion Gap 9 POC BUN BUN 13 Creatinine 0.95 POC Creatinine Estimated GFR 51 L POC Glucose Random Glucose 191 H Calcium 8.2 L Total Bilirubin 0.3 AST 15 ALT 21 Alkaline Phosphatase 69 Total Protein 6.8 Albumin 3.5 Blood Type Antibody Screen - Imaging Impressions Tibia/Fibula X-Ray 12/01/17 00:00 CONCLUSION: Status post open rigid internal fixation. Chest X-Ray 12/01/17 18:19 CONCLUSION: No acute cardiopulmonary disease. Pelvis X-Ray 12/01/17 18:19 CONCLUSION: Negative trauma study. Tibia/Fibula X-Ray 12/01/17 18:26 CONCLUSION: Comminuted fractures of the tibia and fibula. Assessment and Plan - Assessment (1) Open fracture of tibia and fibula Code(s): S82.209B - Unspecified fracture of shaft of unspecified tibia, initial encounter for open fracture type I or II; S82.409B - Unspecified fracture of shaft of unspecified fibula, initial encounter for open fracture type I or II Status: Acute - Plan [place]: This is a 42-snk-iv[age]-old female who sustained a fall. She was walking into her house and bumped her leg on a step, possibly due to to her foot drop. She fell backwards and landed on her buttocks. INJURIES: LEFT tib/fib laceration OPEN LEFT tib/fx PMHX: HTN. Asthma. Sciaatica. LEFT foot drop and neuropathy. Back surgery. Right elbow surgery. Procedures: 12/01: I&D LEFT leg w/ IM Nail. Consults: Orthopedics. Case management. Diet: Regular diet. Tolerating po diet. Encourage good po intake with each meal. Pulmonary: Encourage good pulmonary toileting. IS at bedside and pt encouraged to use. Rationale for use explained to patient, and verbalized understanding. PAIN Management: [place] 5-10 mg q 4h. Morphine 2 mg q 3h. Activity: OOB. . PT and OT ordered. (NWB LLE) GI prophylaxis: Protonix 40 mg IV. Bowel regimen: Rhonda-colace. MOM PRN. Lactulose PRN. Senna PRN. Bisacodyl PRN. LBM: 0 DVT prophylaxis: Mechanical VTE with SCDs. Chemical management with Lovenox 40 mg QD SQ. DC Planning: Case management consulted for assistance with final discharge disposition. Awaiting PT recommendations. Emotional support provided to patient and family at bedside and plan of care discussed. Discussed with RN at bedside. Discussed pt condition and plan of care with collaborating trauma surgeon. Patient is hemodynamically stable and being managed on the med/surg floor. The trauma team will round each day, and evaluate plan of care on a daily basis. LEFT tib/fib laceration OPEN LEFT tib/fx Orthopedics consulted and assisting in management care 12/01: I&D left leg with IM nail Supportive care Pain management PT and OT ordered Encourage out of bed NWB LLE Antibiotics per orthopedics - x 3 days Ice and elevation for comfort and support Bowel regimen Lovenox for DVT prophylaxis - Attending Attestation The exam, history, and the medical decision-making described in the above note were completed with the assistance of the mid-level provider. I reviewed and agree with the findings presented. I attest that I had a [id number] encounter with the patient on the same day, and personally performed and documented my assessment and findings in the medical record.
[2017-12-02] MEDS: Senna/Docusate Sodium 8.6/50 MG Tablet PO SCH ×2 (09:17→22:05)
[2017-12-02] MEDS: Multivitamin/Minerals Therapeutic Tablet PO SCH ×2 (09:17→22:05)
--- NOTE | 2017-12-02 11:22 | P.PNOP ---
Subjective Interval history: Patient resting in bed with mild to moderate LLE pain. Pain is well controlled with pain medication. Physical Exam Vital signs: Vital Signs 12/01/17 18:37 12/01/17 21:54 12/01/17 22:00 Temperature 98.4 F Pulse Rate 100 H 95 H Respiratory Rate 16 11 L Blood Pressure 136/63 139/68 Pulse Oximetry 100 97 95 12/01/17 22:15 12/01/17 22:30 12/01/17 22:45 Temperature Pulse Rate 102 H 107 H Respiratory Rate 20 20 Blood Pressure 142/68 H 125/63 Pulse Oximetry 98 97 97 12/01/17 22:46 12/01/17 23:00 12/01/17 23:05 Temperature 97.8 F Pulse Rate 97 H 104 H Respiratory Rate 15 Blood Pressure 121/58 L 120/60 Pulse Oximetry 96 96 96 12/02/17 00:00 12/02/17 04:00 12/02/17 08:00 Temperature 97.9 F 97.8 F Pulse Rate 108 H 104 H Respiratory Rate 20 18 Blood Pressure 115/62 132/60 Pulse Oximetry 96 98 95 12/02/17 08:25 Temperature 97.6 F Pulse Rate 106 H Respiratory Rate 18 Blood Pressure 155/77 H Pulse Oximetry 94 L Intake & Output 12/01/17 12/02/17 12/02/17 18:59 06:59 18:59 Intake Total 2620 / 2620 Output Total 1850 / 1850 Balance 770 / 770 Weight 119.8 kg Intake: IV 200 / 200 Ancef Inj 1,000 MG In NS Inj 200 / 200 100 ML @ 200 mls/hr IV.SIG Q6H [facility] Rx#:[id number] Oral 1020 / 1020 Anesthesia Amount 1400 / 1400 Output: Urine 1250 / 1250 Estimated Blood Loss 200 / 200 Urine Amount (Catheter) 400 / 400 Indwelling Urethral Catheter 400 / 400 Other: Weight On Admission 114 kg Narrative: Splint and dressing intact. Mild drainage on dressing. Good sensation to light touch x 5. BCR X 5. Minimal movement of toes but this is her baseline due to prior nerve damage in LLE. - Urinary Catheter Management Indwelling Urethral Catheter Cath placed during this visit: yes Reason for continuing: Other continuation reason Insertion date: 12/01/17 Results - Labs CBC & Chem 7: 12/02/17 04:09 12/02/17 04:09 Laboratory Results - last 24 hr 12/01/17 12/01/17 12/01/17 18:19 18:19 18:19 WBC 10.6 RBC 4.36 Hgb 11.7 POC Hgb (Calc) 11.6 Hct 35.1 POC Hct 34.0 L MCV 80.4 MCH 26.9 L MCHC 33.5 RDW 14.7 Plt Count 245 MPV 7.2 Neut % (Auto) 68.5 Lymph % (Auto) 22.0 [place] % (Auto) 6.5 Eos % (Auto) 2.5 Baso % (Auto) 0.5 Neut # (Auto) 7.3 Lymph # (Auto) 2.3 [place] # (Auto) 0.7 Eos # (Auto) 0.3 Baso # (Auto) 0.1 WBC Differential . Differential Comment Auto diff final PT 10.9 INR 1.1 APTT 26.5 POC Sodium 142 Sodium POC Potassium 3.3 L Potassium POC Chloride 99 L Chloride Carbon Dioxide Anion Gap POC BUN 13 BUN Creatinine POC Creatinine 0.8 Estimated GFR POC Glucose 129 H Random Glucose Calcium Total Bilirubin AST ALT Alkaline Phosphatase Total Protein Albumin Blood Type Antibody Screen 12/01/17 12/01/17 12/02/17 18:19 21:58 04:09 WBC 17.2 H D RBC 3.72 L Hgb 10.6 L 9.8 L POC Hgb (Calc) Hct 31.2 L 30.0 L POC Hct MCV 80.7 MCH 26.3 L MCHC 32.6 RDW 14.4 Plt Count 272 MPV 7.2 Neut % (Auto) 91.5 H Lymph % (Auto) 6.3 L [place] % (Auto) 1.9 Eos % (Auto) 0.0 Baso % (Auto) 0.3 Neut # (Auto) 15.8 H Lymph # (Auto) 1.1 [place] # (Auto) 0.3 Eos # (Auto) 0.0 Baso # (Auto) 0.0 WBC Differential . Differential Comment Auto diff final PT INR APTT POC Sodium Sodium POC Potassium Potassium POC Chloride Chloride Carbon Dioxide Anion Gap POC BUN BUN Creatinine POC Creatinine Estimated GFR POC Glucose Random Glucose Calcium Total Bilirubin AST ALT Alkaline Phosphatase Total Protein Albumin Blood Type O Positive Antibody Screen Negative 12/02/17 04:09 WBC RBC Hgb POC Hgb (Calc) Hct POC Hct MCV MCH MCHC RDW Plt Count MPV Neut % (Auto) Lymph % (Auto) [place] % (Auto) Eos % (Auto) Baso % (Auto) Neut # (Auto) Lymph # (Auto) [place] # (Auto) Eos # (Auto) Baso # (Auto) WBC Differential Differential Comment PT INR APTT POC Sodium Sodium 136 POC Potassium Potassium 3.9 POC Chloride Chloride 100 Carbon Dioxide 27.1 Anion Gap 9 POC BUN BUN 13 Creatinine 0.95 POC Creatinine Estimated GFR 51 L POC Glucose Random Glucose 191 H Calcium 8.2 L Total Bilirubin 0.3 AST 15 ALT 21 Alkaline Phosphatase 69 Total Protein 6.8 Albumin 3.5 Blood Type Antibody Screen - Imaging Impressions Tibia/Fibula X-Ray 12/01/17 00:00 CONCLUSION: Status post open rigid internal fixation. Chest X-Ray 12/01/17 18:19 CONCLUSION: No acute cardiopulmonary disease. Pelvis X-Ray 12/01/17 18:19 CONCLUSION: Negative trauma study. Tibia/Fibula X-Ray 12/01/17 18:26 CONCLUSION: Comminuted fractures of the tibia and fibula. Assessment and Plan - Assessment and Plan POD #1: Left leg irrigation and debridement of skin through bone for open fracture. Left leg treatment of tibia fracture with intramedullary nail 1. NWB LLE 2. Lovenox followed by ASA for DVT prophylaxis 3. Ice to the left LE PRN 4. Stable per ortho for discharge when medically cleared. 5. F/U in the office in 1-[address] Davenport or James WEISS. 6. Maintain splint
[2017-12-02] MEDS ORDERED: LORazepam 1 MG Tablet PO PRN (17:05)
[2017-12-02] MEDS: oxyCODONE/Acetaminophen 10/325 Tablet PO PRN ×2 (17:50→22:16)
[2017-12-02] MEDS: Gabapentin 300 MG Capsule PO SCH (17:50)
[2017-12-02] MEDS ORDERED: Montelukast 10 MG Tablet PO SCH (18:00)
[2017-12-02] MEDS ORDERED: Enoxaparin Inj 40 MG/0.4 ML Syringe SQ SCH (20:00)
[2017-12-02] MEDS ORDERED: MOMETASONE FORMOTEROL INH SCH (21:00)
[2017-12-02] MEDS: Metoprolol Tartrate 25 MG Tablet PO SCH (22:04)
[2017-12-02] MEDS: Duloxetine 60 MG DR Capsule PO SCH (22:05)
[2017-12-02] MEDS: Pantoprazole Inj 40 MG Vial IV.PUSH SCH (22:07)
[2017-12-03] MEDS: oxyCODONE/Acetaminophen 10/325 Tablet PO PRN ×4 (03:11→15:38)
[2017-12-03] MEDS ORDERED: Levothyroxine 75 MCG Tablet PO SCH (06:00)
[2017-12-03] MEDS: Senna/Docusate Sodium 8.6/50 MG Tablet PO SCH (07:59)
[2017-12-03] MEDS: Metoprolol Tartrate 25 MG Tablet PO SCH (07:59)
[2017-12-03] MEDS: Duloxetine 60 MG DR Capsule PO SCH (07:59)
[2017-12-03] MEDS: Multivitamin/Minerals Therapeutic Tablet PO SCH (07:59)
[2017-12-03] MEDS: Gabapentin 300 MG Capsule PO SCH ×2 (07:59→13:17)
--- NOTE | 2017-12-03 10:16 | P.PN ---
Subjective Interval history: TRAUMA PTD: 2 Patient sitting up in bed. No distress noted. Waiting for her breakfast tray to be delivered. Patient states, "I am okay." Patient states she worked with physical therapy yesterday, and was out of bed in the chair for over 3 hours. Patient states she is only having difficulty with transferring, and ambulation, due to to the weight of the splint on her left lower extremity. "This thing is heavy -it feels like concrete." Patient is hopeful for rehab placement. Physical Exam Vital signs: Vital Signs 12/02/17 12:03 12/02/17 13:42 12/02/17 16:30 Temperature 97.7 F 97.8 F Pulse Rate 98 H 94 H Respiratory Rate 18 18 Blood Pressure 150/72 H 146/67 H Pulse Oximetry 96 95 95 12/02/17 18:33 12/02/17 20:00 12/03/17 00:00 Temperature 98.6 F 98.1 F Pulse Rate 102 H 94 H Respiratory Rate 18 18 18 Blood Pressure 146/65 H 174/82 H Pulse Oximetry 93 L 95 12/03/17 04:00 12/03/17 07:38 Temperature 98.2 F 98.5 F Pulse Rate 93 H 95 H Respiratory Rate 18 18 Blood Pressure 167/74 H 160/72 H Pulse Oximetry 96 97 Intake & Output 12/02/17 12/03/17 12/03/17 18:59 06:59 18:59 Intake Total 2160 / 2160 1880 / 1880 Output Total 2900 / 2900 Balance 2160 / 2160 -1020 / -1020 Weight 123 kg Intake: IV 1200 / 1200 200 / 200 LR 1000 mL Inj 1,000 ML @ 80 1000 / 1000 mls/hr IV.CONT .[id number] [facility] Rx# :[id number] Ancef Inj 1,000 MG In NS Inj 200 / 200 200 / 200 100 ML @ 200 mls/hr IV.SIG Q6H [facility] Rx#:[id number] Oral 960 / 960 1680 / 1680 Output: Urine Amount (Catheter) 2900 / 2900 Indwelling Urethral Catheter 2900 / 2900 Other: Date of Last Bowel Movement 12/01/17 Narrative: GENERAL: This is a 67 year-old female sitting up in bed. No distress noted. SKIN: Warm and dry. HEAD: Atraumatic. Normocephalic. EYES: PERRLA ENT: No nasal bleeding or discharge. Mucous membranes pink and moist. NECK: Trachea midline. No JVD. CARDIOVASCULAR: Regular rate and rhythm. RESPIRATORY: No accessory muscle use. Lungs are clear to auscultation. Breath sounds equal bilaterally. No distress or dyspnea. GASTROINTESTINAL: BS + x 4 quads. Abdomen soft, non-tender, nondistended. MUSCULOSKELETAL: Extremities without cyanosis, or edema. Left lower extremity with splint in place and wrapped in Len bandage -elevated on pillow. + peripheral pulses x 4 extremities. Warm with good capillary refill and sensation. MAEW. NEUROLOGICAL: Awake and alert. Normal speech and pattern. - Urinary Catheter Management Indwelling Urethral Catheter Cath placed during this visit: yes Reason for continuing: Other continuation reason Insertion date: 12/01/17 Results - Labs CBC & Chem 7: 12/02/17 04:09 12/02/17 04:09 Assessment and Plan - Assessment (1) Open fracture of tibia and fibula Code(s): S82.209B - Unspecified fracture of shaft of unspecified tibia, initial encounter for open fracture type I or II; S82.409B - Unspecified fracture of shaft of unspecified fibula, initial encounter for open fracture type I or II Status: Acute - Plan [place] This is a 89-lmu-pyeo-old female who sustained a fall. She was walking into her house and bumped her leg on a step, possibly due to to her foot drop. She fell backwards and landed on her buttocks. INJURIES: LEFT tib/fib laceration OPEN LEFT tib/fx PMHX: HTN. Asthma. Sciaatica. LEFT foot drop and neuropathy. Back surgery. Right elbow surgery. Procedures: 12/01: I&D LEFT leg w/ IM Nail. Consults: Orthopedics. Case management. Diet: Regular diet. Tolerating po diet. Encourage good po intake with each meal. Pulmonary: Encourage good pulmonary toileting. IS at bedside and pt encouraged to use. Rationale for use explained to patient, and verbalized understanding. PAIN Management: DC [place]. Changed to Percocet 7.5-10 mg q 4h. Morphine 2 mg q 3h for breakthrough pain. Resumed home Flexeril 10 mg q8h. resumed home Neurontin 600 mg TID. Activity: OOB. . PT and OT ordered. (NWB LLE) GI prophylaxis: Protonix 40 mg IV. Bowel regimen: Rhonda-colace. MOM PRN. Lactulose PRN. Senna PRN. Bisacodyl PRN. LBM: 0 DVT prophylaxis: Mechanical VTE with SCDs. Chemical management with Lovenox 40 mg QD SQ. DC Planning: Case management consulted for assistance with final discharge disposition. PT recommends rehab. Consult placed to [facility] nurse liaison. Plan for discharge today or tomorrow, once authorization has been obtained. Emotional support provided to patient and family at bedside and plan of care discussed. Discussed with RN at bedside. Discussed pt condition and plan of care with collaborating trauma surgeon. Patient is hemodynamically stable and being managed on the med/surg floor. The trauma team will round each day, and evaluate plan of care on a daily basis. LEFT tib/fib laceration OPEN LEFT tib/fx Orthopedics consulted and assisting in management care 12/01: I&D left leg with IM nail Supportive care Pain management PT and OT ordered Encourage out of bed NWB LLE Antibiotics per orthopedics - x 3 days Ice and elevation for comfort and support Bowel regimen Lovenox for DVT prophylaxis HTN. HLD. Asthma. Sciaatica. LEFT foot drop and neuropathy. Supportive care Resume home medications Lopressor 25 mg BID. HCTZ 50 mg po QD. Losartan 100 mg QD. Simvastatin. Synthroid. Vital signs every 4 hours and as needed Discharge Planning: The exam, history, and the medical decision-making described in the above note were completed with the assistance of the mid-level provider. I reviewed and agree with the findings presented. I attest that I had a [id number] encounter with the patient on the same day, and personally performed and documented my assessment and findings in the medical record.
--- NOTE | 2017-12-03 13:10 | P.PNOP ---
Subjective Interval history: The patient is resting comfortably in bed in no acute distress. The patient reports improved pain to the left lower leg. Physical Exam Vital signs: Vital Signs 12/02/17 13:42 12/02/17 16:30 12/02/17 18:33 Temperature 97.8 F Pulse Rate 94 H Respiratory Rate 18 18 Blood Pressure 146/67 H Pulse Oximetry 95 95 12/02/17 20:00 12/03/17 00:00 12/03/17 04:00 Temperature 98.6 F 98.1 F 98.2 F Pulse Rate 102 H 94 H 93 H Respiratory Rate 18 18 18 Blood Pressure 146/65 H 174/82 H 167/74 H Pulse Oximetry 93 L 95 96 12/03/17 07:38 12/03/17 11:31 Temperature 98.5 F Pulse Rate 95 H Respiratory Rate 18 Blood Pressure 160/72 H Pulse Oximetry 97 97 Intake & Output 12/02/17 12/03/17 12/03/17 18:59 06:59 18:59 Intake Total 2160 / 2160 1880 / 1880 100 / 100 Output Total 2900 / 2900 Balance 2160 / 2160 -1020 / -1020 100 / 100 Weight 123 kg Intake: IV 1200 / 1200 200 / 200 100 / 100 LR 1000 mL Inj 1,000 ML @ 80 1000 / 1000 mls/hr IV.CONT .[id number] [facility] Rx# :[id number] Ancef Inj 1,000 MG In NS Inj 200 / 200 200 / 200 100 / 100 100 ML @ 200 mls/hr IV.SIG Q6H [facility] Rx#:[id number] Oral 960 / 960 1680 / 1680 Output: Urine Amount (Catheter) 2900 / 2900 Indwelling Urethral Catheter 2900 / 2900 Other: Date of Last Bowel Movement 12/01/17 Narrative: The patient's dressing and splint is clean, dry, and intact. The patient has good sensation to light touch about all toes. There is brisk cap refill 5. - Urinary Catheter Management Indwelling Urethral Catheter Cath placed during this visit: yes Reason for continuing: Other continuation reason Insertion date: 12/01/17 Results - Labs CBC & Chem 7: 12/02/17 04:09 12/02/17 04:09 Assessment and Plan - Assessment and Plan POD #1: Left leg irrigation and debridement of skin through bone for open fracture. Left leg treatment of tibia fracture with intramedullary nail 1. NWB LLE 2. Lovenox followed by ASA for DVT prophylaxis 3. Ice to the left LE PRN 4. Stable per ortho for discharge when medically cleared. The patient will likely be discharged to [place] rehab today. 5. F/U in the office in 1-[address] Davenport or James WEISS. 6. Maintain splint 7. Prescriptions are printed and on chart for discharge 8. The patient should finish out her 3 days of postoperative antibiotics for her open fracture.
--- NOTE | 2017-12-03 13:43 | P.DS ---
Date of admission: 12/01/17 18:43 Primary care physician: No Primary Care Physician Attending physician on discharge: Omi Joyce Anticipated date of discharge: 12/03/17 Brief History from admission: Fall. DS: Diagnosis - Discharge Diagnosis (1) Open fracture of tibia and fibula Status: Acute DS: Medications - Discharge Medications Prescriptions: aspirin 325 mg PO DAILY 30 Days #30 tab enoxaparin [Lovenox] 40 mg SUB-Q Q24H 10 Days #10 ml oxycodone-acetaminophen 1 tab PO Q4H PRN #30 tab PRN Reason: Acute Pain DS: Summary Hospital Course: [facility]: This is a 8-[id number]-vwar-old female who sustained a fall. She was walking into her house and bumped her leg on a step, possibly due to to her foot drop. She fell backwards and landed on her buttocks. INJURIES: LEFT tib/fib laceration OPEN LEFT tib/fx PMHX: HTN. Asthma. Sciaatica. LEFT foot drop and neuropathy. Back surgery. Right elbow surgery. Procedures: 12/01: I&D LEFT leg w/ IM Nail. Consults: Orthopedics. Case management. The patient is now tolerating a po diet. Eating and drinking well. Pain is being managed well with PO pain medications, all hospital medications will continue at [facility]. Three day IV Ancef antibiotic course will continue and finish at [facility] with an end date of 12/04. (NO driving while taking narcotic pain medication enforced to patient.) We have recommended to patient to continue with stool softeners while taking narcotic pain medications to prevent constipation. Pt has been participating in PT and OT while admitted at [facility] and has been ambulating with their assistance and independently. PT and OT will continue at [facility] All follow up appointments have been provided and discussed with the patient. It is recommended that the patient keeps all his follow up appointments for continued recovery. Patient's condition and plan of care discussed with collaborating trauma surgeon. He is agreeable to plan for discharge today to [facility]. Therefore, the patient is stable to be safely discharged to [facility] from a trauma surgery standpoint. Thank you for allowing us to participate in her care. We wish Susan the best in her recovery. LEFT tib/fib laceration OPEN LEFT tib/fx Orthopedics consulted and assisting in management care 12/01: I&D left leg with IM nail Supportive care Pain management PT and OT ordered [facility] out of bed NWB LLE Antibiotics per orthopedics - x 3 days -will continue course at [facility] Ice and elevation for comfort and support Bowel regimen Lovenox for DVT prophylaxis HTN. HLD. Asthma. Sciaatica. LEFT foot drop and neuropathy. Supportive care Resume home medications Lopressor 25 mg BID. HCTZ 50 mg po QD. Losartan 100 mg QD. Simvastatin. Synthroid. Vital signs every 4 hours and as needed - Time Spent with Patient Total time spent providing and/or coordinating discharge services: Greater than 30 minutes - Quality: VTE Deep Vein Thrombosis/Pulmonary Embolism Present on Admission: No Exam Vital signs: Vital Signs 12/02/17 13:42 12/02/17 16:30 12/02/17 18:33 Temperature 97.8 F Pulse Rate 94 H Respiratory Rate 18 18 Blood Pressure 146/67 H Pulse Oximetry 95 95 12/02/17 20:00 12/03/17 00:00 12/03/17 04:00 Temperature 98.6 F 98.1 F 98.2 F Pulse Rate 102 H 94 H 93 H Respiratory Rate 18 18 18 Blood Pressure 146/65 H 174/82 H 167/74 H Pulse Oximetry 93 L 95 96 12/03/17 07:38 12/03/17 11:31 Temperature 98.5 F Pulse Rate 95 H Respiratory Rate 18 Blood Pressure 160/72 H Pulse Oximetry 97 97 Intake & Output 12/02/17 12/03/17 12/03/17 18:59 06:59 18:59 Intake Total 2160 / 2160 1880 / 1880 100 / 100 Output Total 2900 / 2900 Balance 2160 / 2160 -1020 / -1020 100 / 100 Weight 123 kg Intake: IV 1200 / 1200 200 / 200 100 / 100 LR 1000 mL Inj 1,000 ML @ 80 1000 / 1000 mls/hr IV.CONT .[id number] [facility] Rx# :[id number] Ancef Inj 1,000 MG In NS Inj 200 / 200 200 / 200 100 / 100 100 ML @ 200 mls/hr IV.SIG Q6H [facility] Rx#:[id number] Oral 960 / 960 1680 / 1680 Output: Urine Amount (Catheter) 2900 / 2900 Indwelling Urethral Catheter 2900 / 2900 Other: Date of Last Bowel Movement 12/01/17 Results Procedures completed during hospitalization: . - Impressions ITS Impressions Chest X-Ray 12/01/17 18:19 CONCLUSION: No acute cardiopulmonary disease. Pelvis X-Ray 12/01/17 18:19 CONCLUSION: Negative trauma study. Tibia/Fibula X-Ray 12/01/17 18:26 CONCLUSION: Comminuted fractures of the tibia and fibula. Discharge Plan - Discharge Disposition Patient Disposition: [facility] Inpatient - Discharge Condition Condition: Stable - Discharge Order Discharge Orders: Discharge Order (Routine); Ordered 12/03/17 Ordered By: Madeleine Casas - Discharge Details Anticipated Discharge Date: 12/03/17 Discharge Comment: DC to [place] - Physicians Team Primary Care Provider: Primary Care Aguedai,Pamela Attending Provider: Omi Joyce Other Providers: Errol Brasher MD ; Kvng Woodall MD ; [facility] [employer] [facility] ; Omi Joyce MD ; Madeleine Casas ARNP ; J Luis Fatima MD ; Irma Bonilla MD ; Faviola Bragg ARNP ; Ellie Bonilla MD
== END 2017-12-03 16:41 ==
LOC: NEPI 18:17 → NEDA 18:43 → EDBD 18:43 → N06 23:27
PROVIDERS: ADMIT Surgery; ATTEND Surgery
PROC: ORIFTIB (2017-12-01 19:20)